=== PATIENT | female | born 1980 | race Caucasian/White ===

== ENCOUNTER 2017-11-06 16:47 | Outpatient (CLI) | payer OTHER ==
[2017-11-06 17:13] LABS: BASOPHILS % 0.7 (0.0-1.5); EOSINOPHILS % 1.7 % (0.0-6.8); MEAN CORPUSCULAR HEMOGLOBIN 29.9 pg (28.0-34.0); MEAN CORPUSCULAR VOLUME 86.8 fl (80.0-100.0); NEUTROPHILS # 3.6 # k/uL (1.4-7.7)
[2017-11-06 17:40] LABS: eGFR (African) > 60; eGFR (Non-African) > 60
== END 2017-11-06 16:50 ==
LOC: OUT 16:47 → LAB 16:50
PROVIDERS: ATTEND Physician Assistant
DX: R42 Dizziness and giddiness (principal)
CPT/HCPCS: 36415; 80053; 84443; 85025

== ENCOUNTER 2017-11-12 14:38 | Outpatient (CLI) | payer OTHER | END 2017-11-12 14:40 | LOC: CARD 14:38 | PROVIDERS: ATTEND Internal Medicine Cardiovascular Disease | DX: R42 Dizziness and giddiness (principal) | CPT/HCPCS: 99213 ==

== ENCOUNTER 2017-11-26 12:38 | Outpatient (CLI) | payer OTHER | END 2017-11-26 12:45 | LOC: CARD 12:38 | PROVIDERS: ATTEND Internal Medicine Cardiovascular Disease | DX: R42 Dizziness and giddiness (principal) | CPT/HCPCS: 99213 ==